=== PATIENT | male | born 1985 | race Caucasian/White ===

== ENCOUNTER → 2017-12-16 | Outpatient (CLI) | payer OTHER ==
[~2017-12-16] MED LIST: CLARITIN10 MG PO; TOPCARE OMEPRAZ20 MG PO; TRIMOX500 MG PO
== END ==
LOC: CT 11:59
DX: R19.00 Intra-abdominal and pelvic swelling, mass and lump, unspecified site (principal); M47.896 Other spondylosis, lumbar region; R12 Heartburn

== ENCOUNTER → 2017-12-21 | Day surgery (SDC) | payer OTHER ==
[~2017-12-21] VITALS: Ht 175.2 cm; Wt 92.5 kg
[2017-12-21 07:14] VITALS: BP 150/105
[2017-12-21 08:05] VITALS: BP 132/67
[2017-12-21 08:20] VITALS: BP 137/75
[2017-12-21 08:35] VITALS: BP 144/91
== END | disposition home or self-care (01) ==
LOC: SDC 12-16 08:45
DX: K29.50 Unspecified chronic gastritis without bleeding (principal); K44.9 Diaphragmatic hernia without obstruction or gangrene; I10 Essential (primary) hypertension; E03.9 Hypothyroidism, unspecified; K21.9 Gastro-esophageal reflux disease without esophagitis; F41.9 Anxiety disorder, unspecified; F31.9 Bipolar disorder, unspecified; Z91.5 Personal history of self-harm; F17.210 Nicotine dependence, cigarettes, uncomplicated

== ENCOUNTER → 2018-01-18 | Day surgery (SDC) | payer OTHER ==
[2018-01-14 08:29] VITALS: BP 138/83
[~2018-01-18] VITALS: Ht 175.2 cm; Wt 72.6 kg
[~2018-01-18] MED LIST changes: +COLACE 2-IN-11 EACH PO; +IBUPROFEN600 MG PO; +NORCO 5-325 TA1 EACH PO
[2018-01-18 11:00] VITALS: BP 144/73
[2018-01-18 12:51] VITALS: BP 113/69
[2018-01-18 13:04] VITALS: BP 109/71
[2018-01-18 13:20] VITALS: BP 128/62
[2018-01-18 13:40] VITALS: BP 123/80
== END ==
LOC: SDC 01-14 08:45
DX: K43.9 Ventral hernia without obstruction or gangrene (principal); I10 Essential (primary) hypertension; E07.89 Other specified disorders of thyroid; K21.9 Gastro-esophageal reflux disease without esophagitis; F41.9 Anxiety disorder, unspecified; F31.9 Bipolar disorder, unspecified; Z91.5 Personal history of self-harm; F17.210 Nicotine dependence, cigarettes, uncomplicated; Z88.8 Allergy status to other drugs, medicaments and biological substances

== ENCOUNTER 2018-04-14 12:23 | Emergency (ER) | payer OTHER ==
[~2018-04-14] VITALS: Ht 175.2 cm; Wt 95.3 kg
[2018-04-14] MEDS ORDERED: ORPHENADRINE C100 M1 PO (15:11)
[2018-04-14] MEDS ORDERED: NAPROSYN500 MG PO (15:11)
== END 2018-04-14 15:41 | disposition home or self-care (01) ==
LOC: ED 12:23
DX: S16.1XXA Strain of muscle, fascia and tendon at neck level, initial encounter (principal); S50.11XA Contusion of right forearm, initial encounter; S20.211A Contusion of right front wall of thorax, initial encounter; F17.200 Nicotine dependence, unspecified, uncomplicated; Z91.013 Allergy to seafood; Z91.040 Latex allergy status; Z88.6 Allergy status to analgesic agent; Z79.899 Other long term (current) drug therapy; V49.88XA Car occupant (driver) (passenger) injured in other specified transport accidents, initial encounter; Y93.89 Activity, other specified; Y92.413 State road as the place of occurrence of the external cause; Y99.9 Unspecified external cause status

== ENCOUNTER → 2019-11-16 | Outpatient (CLI) | payer OTHER ==
[~2019-11-16] MED LIST changes: +CYCLOBENZAPRINE5 M3 PO; +MEDROL DOSEPAK4 MG PO; +Motrin,Rufen800 MG PO; +NAPROSYN500 MG PO; +ORPHENADRINE C100 M1 PO
[2019-11-16 10:27] LABS: BASO # 0.1 10*3/uL (0.0-0.1); BASO % 0.9 % (0.0-1.0); EOS # 0.5 10*3/uL (0.0-0.4); EOS % 6.2 % (1.0-4.0); HEMATOCRIT 46.9 % (42.0-52.0); HEMOGLOBIN 15.8 g/dl (14.0-18.0); LYMPH # 2.1 10*3/uL (1.3-4.4); LYMPH % 25.8 % (27.0-41.0); MEAN CELL VOLUME 91.8 fl (80.0-94.0); MEAN CORPUSCULAR HGB 30.9 pg (27.0-31.0); MEAN CORPUSCULAR HGB CONC 33.7 g/dl (33.0-37.0); MEAN PLATELET VOLUME 9.8 fl (9.6-12.3); MONO # 0.9 10*3/uL (0.1-1.0); MONO % 10.5 % (3.0-9.0); NEUT # 4.6 10*3/uL (2.3-7.9); NEUT % 55.7 % (47.0-73.0); PLATELET COUNT AUTOMATED 302 10*3/uL (130-400); RED BLOOD COUNT 5.11 10*6/uL (4.50-5.90); RED CELL DISTRI WIDTH 12.4 % (0-14.5); WHITE BLOOD COUNT 8.2 10*3/uL (4.8-10.8)
[2019-11-16 10:52] LABS: ALBUMIN 3.9 gm/dl (3.1-4.5); ALKALINE PHOSPHATASE 117 U/L (45-117); BUN 23 mg/dl (7-24); CHLORIDE 104 mmol/L (98-107); CREATININE 1.23 mg/dL (0.70-1.30); FREE T4 0.87 ng/dl (0.76-1.46); POTASSIUM 4.6 mmol/L (3.5-5.1); SGOT/AST 22 IU/L (3-35); SGPT/ALT 33 U/L (12-78); SODIUM 139 mmol/L (136-145); TOTAL PROTEIN 7.7 gm/dL (6.4-8.2)
== END | disposition home or self-care (01) ==
LOC: LAB 09:39
PROVIDERS: Internal Medicine Nephrology
DX: F31.9 Bipolar disorder, unspecified (principal); R07.89 Other chest pain

== ENCOUNTER 2020-06-08 14:44 | Emergency (ER) | payer OTHER ==
[~2020-06-08] VITALS: Ht 182.8 cm; Wt 105.7 kg
== END 2020-06-08 18:36 | disposition home or self-care (01) ==
LOC: ED 14:44
DX: S62.112A Displaced fracture of triquetrum [cuneiform] bone, left wrist, initial encounter for closed fracture (principal); S51.812A Laceration without foreign body of left forearm, initial encounter; S69.92XA Unspecified injury of left wrist, hand and finger(s), initial encounter; Z23 Encounter for immunization; I10 Essential (primary) hypertension; K21.9 Gastro-esophageal reflux disease without esophagitis; F31.9 Bipolar disorder, unspecified; F41.9 Anxiety disorder, unspecified; Z88.8 Allergy status to other drugs, medicaments and biological substances; Z91.040 Latex allergy status; X58.XXXA Exposure to other specified factors, initial encounter; Y93.89 Activity, other specified; Y92.89 Other specified places as the place of occurrence of the external cause; Y99.8 Other external cause status

== ENCOUNTER 2020-06-16 13:50 | Emergency (ER) | payer OTHER ==
[~2020-06-16] VITALS: Ht 182.8 cm; Wt 105.7 kg
[2020-06-16 14:23] LABS: BASO # 0.1 10*3/uL (0.0-0.1); BASO % 0.6 % (0.0-1.0); EOS % 0.2 % (1.0-4.0); HEMATOCRIT 40.7 % (42.0-52.0); LYMPH # 1.3 10*3/uL (1.3-4.4); LYMPH % 10.9 % (27.0-41.0); MEAN CELL VOLUME 87.5 fl (80.0-94.0); MEAN CORPUSCULAR HGB 30.3 pg (27.0-31.0); MEAN CORPUSCULAR HGB CONC 34.6 g/dl (33.0-37.0); MEAN PLATELET VOLUME 9.3 fl (9.6-12.3); MONO # 1.2 10*3/uL (0.1-1.0); MONO % 9.8 % (3.0-9.0); NEUT # 9.2 10*3/uL (2.3-7.9); NEUT % 77.6 % (47.0-73.0); PLATELET COUNT AUTOMATED 248 10*3/uL (130-400); RED BLOOD COUNT 4.65 10*6/uL (4.50-5.90); RED CELL DISTRI WIDTH 12.5 % (0-14.5); WHITE BLOOD COUNT 11.8 10*3/uL (4.8-10.8)
[2020-06-16 14:40] LABS: ALBUMIN 3.4 gm/dl (3.1-4.5); ALKALINE PHOSPHATASE 107 U/L (45-117); BUN 17 mg/dl (7-24); CHLORIDE 101 mmol/L (98-107); CREATININE 1.04 mg/dL (0.70-1.30); POTASSIUM 3.5 mmol/L (3.5-5.1); SGOT/AST 10 IU/L (3-35); SGPT/ALT 19 U/L (12-78); SODIUM 132 mmol/L (136-145); TOTAL PROTEIN 7.8 gm/dL (6.4-8.2)
[2020-06-16 14:42] LABS: TROPONIN I < 0.015 ng/ml (<0.045)
[2020-06-16 16:00] LABS: BILIRUBIN NEGATIVE (NEGATIVE); BLOOD NEGATIVE (NEGATIVE); CLARITY CLEAR (CLEAR); COLOR YELLOW (YELLOW); GLUCOSE NEGATIVE (NEGATIVE); KETONE NEGATIVE (NEGATIVE); LEUKO ESTERASE NEGATIVE (NEGATIVE); NITRITE NEGATIVE (NEGATIVE); UROBILINOGEN 0.2 E.U./dl (0.2-1.0)
[2020-06-16 16:09] LABS: BACTERIA 1+; MUCOUS 3+; WBC 0-2 wbc/hpf (0-5)
== END 2020-06-16 17:19 | disposition home or self-care (01) ==
LOC: ED 13:50
PROVIDERS: Physician Assistant
DX: R50.9 Fever, unspecified (principal); I10 Essential (primary) hypertension; K21.9 Gastro-esophageal reflux disease without esophagitis; F41.9 Anxiety disorder, unspecified; F31.9 Bipolar disorder, unspecified; Z20.828 Contact with and (suspected) exposure to other viral communicable diseases; Z91.040 Latex allergy status; Z88.8 Allergy status to other drugs, medicaments and biological substances

== ENCOUNTER 2020-07-08 12:14 | Emergency (ER) | payer OTHER ==
[~2020-07-08] VITALS: Ht 182.8 cm; Wt 60.3 kg
[2020-07-08] MEDS ORDERED: KEFLEX500 M1 PO (13:20)
[2020-07-08] MEDS ORDERED: SEPTDS PO (13:20)
== END 2020-07-08 14:24 | disposition home or self-care (01) ==
LOC: ED 12:14
DX: T81.41XA Infection following a procedure, superficial incisional surgical site, initial encounter (principal); L02.414 Cutaneous abscess of left upper limb; L08.9 Local infection of the skin and subcutaneous tissue, unspecified; Z88.8 Allergy status to other drugs, medicaments and biological substances; Z91.040 Latex allergy status; Y92.89 Other specified places as the place of occurrence of the external cause

== ENCOUNTER 2021-03-28 19:00 | Emergency (ER) | payer OTHER ==
[~2021-03-28 19:00] MED LIST changes: +KEFLEX500 M1 PO; +SEPTDS PO
== END 2021-03-28 19:51 | disposition left against medical advice (07) ==
LOC: ED 19:00
DX: R06.02 Shortness of breath (principal); Z53.21 Procedure and treatment not carried out due to patient leaving prior to being seen by health care provider

== ENCOUNTER 2021-12-08 01:49 | Emergency (ER) | payer OTHER ==
[~2021-12-08] VITALS: Ht 182.8 cm; Wt 108.9 kg
== END 2021-12-08 05:40 | disposition home or self-care (01) ==
LOC: ED 01:49
DX: J06.9 Acute upper respiratory infection, unspecified (principal); F17.200 Nicotine dependence, unspecified, uncomplicated; Z88.8 Allergy status to other drugs, medicaments and biological substances; Z91.040 Latex allergy status; Z91.013 Allergy to seafood

== ENCOUNTER 2025-04-06 20:39 | Emergency (ER) | payer SELFPAY ==
[~2025-04-06] VITALS: Wt 119.3 kg
[2025-04-06] MEDS ORDERED: LISSAMINE GREEN 1.5 MG STRIP OP ONE (21:45)
[2025-04-06] MEDS ORDERED: Tetracaine Hydrochloride 0.5% 4 ML BOT OPH ONE (21:45)
[2025-04-06] MEDS ORDERED: AMOXICILLIN500 M2 PO (22:31)
[2025-04-06] MEDS ORDERED: TOBRAMYCIN 2.5 ML BOT OPH ONE (22:35)
[2025-04-06] MEDS ORDERED: AMOXICILLIN 500 MG CAP PO ONE (22:35)
== END 2025-04-06 22:52 | disposition home or self-care (01) ==
LOC: ED 20:39
DX: S05.01XA Injury of conjunctiva and corneal abrasion without foreign body, right eye, initial encounter (principal); J32.9 Chronic sinusitis, unspecified; F17.200 Nicotine dependence, unspecified, uncomplicated; Z91.013 Allergy to seafood; Z88.8 Allergy status to other drugs, medicaments and biological substances; Z91.040 Latex allergy status; Z79.899 Other long term (current) drug therapy; X58.XXXA Exposure to other specified factors, initial encounter; Y93.89 Activity, other specified; Y92.89 Other specified places as the place of occurrence of the external cause; Y99.8 Other external cause status; Z79.2 Long term (current) use of antibiotics

== ENCOUNTER 2025-08-18 11:29 | Emergency (ER) | payer SELFPAY ==
[~2025-08-18] VITALS: Ht 185.4 cm; Wt 102.1 kg
[~2025-08-18 11:29] MED LIST changes: +AMOXICILLIN500 M2 PO
[2025-08-18] MEDS ORDERED: SODIUM CHLORIDE 0.9% 1,000 ML IV ONE ×2 (11:55→14:45)
[2025-08-18] MEDS ORDERED: ceFAZolin sodium/sodium chlor 10 ML IV ONE (11:55)
[2025-08-18] MEDS ORDERED: Tdap Vaccine 0.5 ML SYR (Adult Vaccine) IM ONE (11:55)
[2025-08-18] MEDS ORDERED: Ondansetron Hydrochloride 4 MG/2 ML VIAL IV ONE (11:55)
[2025-08-18] MEDS ORDERED: IOHEXOL 300 MG/ML 100 ML VIAL IV ONE (12:00)
[2025-08-18] MEDS ORDERED: ACETAMINOPHEN 100 ML IV ONE (15:55)
== END 2025-08-18 17:06 | disposition short-term general hospital (02) ==
LOC: ED 11:29
DX: S36.69XA Other injury of rectum, initial encounter (principal); S06.30AA Unspecified focal traumatic brain injury with loss of consciousness status unknown, initial encounter; T79.7XXA Traumatic subcutaneous emphysema, initial encounter; I10 Essential (primary) hypertension; K21.9 Gastro-esophageal reflux disease without esophagitis; F41.9 Anxiety disorder, unspecified; F32.A Depression, unspecified; E07.9 Disorder of thyroid, unspecified; Z91.013 Allergy to seafood; Z91.040 Latex allergy status; Z88.8 Allergy status to other drugs, medicaments and biological substances; W22.8XXA Striking against or struck by other objects, initial encounter; Y93.89 Activity, other specified; Y92.89 Other specified places as the place of occurrence of the external cause; Y99.8 Other external cause status